=== PATIENT | female | born 1945 | race Caucasian/White ===

== ENCOUNTER → 2017-04-11 | Outpatient (CLI) | payer OTHER | LOC: HYPER 07:08 | DX: T81.31XA Disruption of external operation (surgical) wound, not elsewhere classified, initial encounter (principal); M05.9 Rheumatoid arthritis with rheumatoid factor, unspecified; M05.57 Rheumatoid polyneuropathy with rheumatoid arthritis of ankle and foot; I10 Essential (primary) hypertension; E78.5 Hyperlipidemia, unspecified; M48.06 Spinal stenosis, lumbar region; K21.9 Gastro-esophageal reflux disease without esophagitis; E03.9 Hypothyroidism, unspecified; M54.5 Low back pain; Z98.1 Arthrodesis status; Y83.8 Other surgical procedures as the cause of abnormal reaction of the patient, or of later complication, without mention of misadventure at the time of the procedure; Y92.89 Other specified places as the place of occurrence of the external cause ==

== ENCOUNTER → 2017-06-09 | Outpatient (CLI) | payer OTHER | LOC: HYPER 05-04 09:07 | DX: T81.4XXD Infection following a procedure, subsequent encounter (principal); M54.5 Low back pain; M48.06 Spinal stenosis, lumbar region; M05.57 Rheumatoid polyneuropathy with rheumatoid arthritis of ankle and foot; M05.9 Rheumatoid arthritis with rheumatoid factor, unspecified; I10 Essential (primary) hypertension; E78.5 Hyperlipidemia, unspecified; K21.9 Gastro-esophageal reflux disease without esophagitis; M19.90 Unspecified osteoarthritis, unspecified site; E03.9 Hypothyroidism, unspecified; Z98.1 Arthrodesis status; Y83.8 Other surgical procedures as the cause of abnormal reaction of the patient, or of later complication, without mention of misadventure at the time of the procedure ==

== ENCOUNTER → 2017-06-22 | Outpatient (CLI) | payer OTHER | LOC: HYPER 06:56 | DX: T81.4XXD Infection following a procedure, subsequent encounter (principal); M05.57 Rheumatoid polyneuropathy with rheumatoid arthritis of ankle and foot; M05.9 Rheumatoid arthritis with rheumatoid factor, unspecified; I10 Essential (primary) hypertension; E78.5 Hyperlipidemia, unspecified; K21.9 Gastro-esophageal reflux disease without esophagitis; M19.90 Unspecified osteoarthritis, unspecified site; E03.9 Hypothyroidism, unspecified; Z96.651 Presence of right artificial knee joint; Z98.1 Arthrodesis status; Y83.8 Other surgical procedures as the cause of abnormal reaction of the patient, or of later complication, without mention of misadventure at the time of the procedure ==

== ENCOUNTER → 2017-07-13 | Outpatient (CLI) | payer OTHER | LOC: HYPER 07-12 12:31 | DX: T81.4XXD Infection following a procedure, subsequent encounter (principal); M54.5 Low back pain; M48.06 Spinal stenosis, lumbar region; M05.57 Rheumatoid polyneuropathy with rheumatoid arthritis of ankle and foot; M05.9 Rheumatoid arthritis with rheumatoid factor, unspecified; M06.9 Rheumatoid arthritis, unspecified; I10 Essential (primary) hypertension; E78.5 Hyperlipidemia, unspecified; K21.9 Gastro-esophageal reflux disease without esophagitis; E03.9 Hypothyroidism, unspecified; Z96.651 Presence of right artificial knee joint; Z98.1 Arthrodesis status; Y83.8 Other surgical procedures as the cause of abnormal reaction of the patient, or of later complication, without mention of misadventure at the time of the procedure ==

== ENCOUNTER → 2018-04-17 | Outpatient (CLI) | payer OTHER | LOC: HYPER 06:56 | DX: T81.4XXD Infection following a procedure, subsequent encounter (principal); R21 Rash and other nonspecific skin eruption; I10 Essential (primary) hypertension; E78.5 Hyperlipidemia, unspecified; E03.9 Hypothyroidism, unspecified; K21.9 Gastro-esophageal reflux disease without esophagitis; M06.9 Rheumatoid arthritis, unspecified; M19.90 Unspecified osteoarthritis, unspecified site; M54.5 Low back pain; M05.57 Rheumatoid polyneuropathy with rheumatoid arthritis of ankle and foot; Z98.1 Arthrodesis status ==

== ENCOUNTER → 2018-05-17 | Outpatient (CLI) | payer OTHER | LOC: HYPER 06:45 | DX: T81.4XXD Infection following a procedure, subsequent encounter (principal); R21 Rash and other nonspecific skin eruption; I10 Essential (primary) hypertension; E78.5 Hyperlipidemia, unspecified; K21.9 Gastro-esophageal reflux disease without esophagitis; E03.9 Hypothyroidism, unspecified; M19.90 Unspecified osteoarthritis, unspecified site; M54.5 Low back pain; M05.57 Rheumatoid polyneuropathy with rheumatoid arthritis of ankle and foot; M06.9 Rheumatoid arthritis, unspecified; Z98.1 Arthrodesis status; Y83.8 Other surgical procedures as the cause of abnormal reaction of the patient, or of later complication, without mention of misadventure at the time of the procedure ==

== ENCOUNTER → 2018-06-14 | Outpatient (CLI) | payer OTHER | LOC: HYPER 06:39 | DX: T81.4XXD Infection following a procedure, subsequent encounter (principal); I10 Essential (primary) hypertension; E03.9 Hypothyroidism, unspecified; E78.5 Hyperlipidemia, unspecified; M19.90 Unspecified osteoarthritis, unspecified site; M06.9 Rheumatoid arthritis, unspecified; K21.9 Gastro-esophageal reflux disease without esophagitis; Z98.1 Arthrodesis status; Y83.8 Other surgical procedures as the cause of abnormal reaction of the patient, or of later complication, without mention of misadventure at the time of the procedure ==